=== PATIENT | male | born 1985 | race Hispanic/Latino ===

== ENCOUNTER 2023-02-17 18:06 | Emergency (ER) | payer BC, OTHER ==
[~2023-02-17] VITALS: Ht 170.2 cm; Wt 97.5 kg
[2023-02-17] MEDS ORDERED: SODIUM CHLORIDE 0.9% 1000ML 1,000 ML IV ONE (18:30)
[2023-02-17 18:39] LABS: BASOPHILS # (AUTO) 0.1 (0.0-0.1); BASOPHILS % 0.8 % (0.0-1.0); EOSINOPHILS # (AUTO) 0.3 (0.0-0.4); EOSINOPHILS % 2.7 % (0.0-6.0); HEMATOCRIT 48.9 % (38.2-49.6); HEMOGLOBIN 17.3 g/dL (14.0-18.0); LYMPHOCYTES # (AUTO) 2.8 (1.0-3.2); LYMPHOCYTES % 24.4 % (18.0-39.1); MEAN CORPUSCULAR HEMOGLOBIN 29.5 pg (28-32); MEAN CORPUSCULAR HGB CONC 35.4 g/dL (31-35); MEAN CORPUSCULAR VOLUME 83.4 fL (81-99); MONOCYTES % 8.3 % (4.4-11.3); NEUTROPHILS # (AUTO) 7.1 (2.1-6.9); NEUTROPHILS % 61.5 % (38.7-80.0); PLATELET COUNT 195 x10e3/uL (140-360); RED BLOOD COUNT 5.86 x10e6/uL (4.3-5.7); RED CELL DISTRIBUTION WIDTH 12.5 % (11.7-14.4)
[2023-02-17 19:09] LABS: ALANINE AMINOTRANSFERASE 87 IU/L (0-55); ALBUMIN 4.7 g/dL (3.5-5.0); ALBUMIN/GLOBULIN RATIO 1.3 (0.8-2.0); ALKALINE PHOSPHATASE 101 IU/L (40-150); BLOOD UREA NITROGEN 13 mg/dL (7-26); BUN/CREATININE RATIO 11 (6-25); CALCIUM 9.6 mg/dL (8.4-10.2); CARBON DIOXIDE 24 mmol/L (22-29); CHLORIDE 100 mmol/L (98-107); CREATINE KINASE 104 IU/L (30-200); CREATININE, SERUM 1.15 mg/dL (0.72-1.25); GLUCOSE 84 mg/dL (74-118); SODIUM 138 mmol/L (136-145)
[2023-02-17] MEDS ORDERED: NAPROSYN500 MG PO (19:36)
[2023-02-17] MEDS ORDERED: CYCLOBENZAPRINE5 MG PO (19:36)
[2023-02-17 19:43] VITALS: BP 109/73; PULSE 69; RESP 15; TEMP 97.9; O2SAT 99
== END 2023-02-17 19:47 | disposition home or self-care (01) ==
LOC: ER 18:12
DX: M54.50 Low back pain, unspecified (principal)
CPT/HCPCS: 36415; 80053; 82550; 84484; 85025; 99283; J7030